=== PATIENT | male | born 1950 | race Caucasian/White ===

== ENCOUNTER 2020-08-07 10:42 | Outpatient (CLI) | payer MEDICARE, OTHER | END 2020-08-07 10:43 | disposition home or self-care (01) | LOC: COV 10:42 | PROVIDERS: ATTEND Family Medicine | DX: R05 Cough (principal); R06.02 Shortness of breath; R53.83 Other fatigue; R09.81 Nasal congestion; Z20.828 Contact with and (suspected) exposure to other viral communicable diseases ==

== ENCOUNTER 2022-02-12 14:08 | Outpatient (CLI) | payer MEDICARE, OTHER ==
[2022-02-12 14:37] LABS: CALCIUM 9.7 mg/dL (8.5-10.3); CREATININE 0.9 mg/dL (0.6-1.2)
== END 2022-02-12 14:09 | disposition home or self-care (01) ==
LOC: LAB 14:08
PROVIDERS: ATTEND Physician Assistant Surgical
DX: N20.2 Calculus of kidney with calculus of ureter (principal)
CPT/HCPCS: 36415; 80048

== ENCOUNTER 2022-04-11 15:21 | Outpatient (CLI) | payer MEDICARE, OTHER ==
--- NOTE | 2022-04-11 16:53 | Ultrasound Report ---
PROCEDURE: Retroperitoneal INDICATIONS: KIDNEY STONE TECHNIQUE: Real-time scanning was performed of the retroperitoneal organs, with image documentation. COMPARISON: None. FINDINGS: Kidneys: Kidneys are normal in size. Right kidney measures 12.1 cm long; left kidney measures 12.2 cm long. Right renal cortical thickness is 2. cm; left renal cortical thickness is 2.0 cm. No solid masses or hydronephrosis. There are bilateral echogenic foci on the left the largest measuring appro ximately 4 mm. Simple left renal cyst is present measuring 34 x 37 x 42 mm. Pancreas: Visualized por tions of the pancreas are sonographically normal. Bladder: Pre-void bladder volume is 957 mL. Post-void residual is 171 mL. Pre-void images demonstr ate no intraluminal masses or stones. On pre-void images, bilateral ureteral jets are noted with col or Doppler interrogation. (Of note, ureteral jets may not be detectable in up to 25% of cases due to insufficient differences in specific gravity between ureteral and bladder urine). Miscellaneous: No free abdominal fluid. IMPRESSION: Echogenic foci within the kidneys suggestive nonobstructing calculi. Reviewed by: Rola Carrillo MD on 04/11/2022 4:51 PM PDT Approved by: Rola Carrillo MD on 04/11/2022 4:51 PM PDT Station ID: [id number]
== END 2022-04-11 15:22 | disposition home or self-care (01) ==
LOC: DI 15:21
PROVIDERS: ATTEND Physician Assistant Surgical
DX: N20.0 Calculus of kidney (principal)

== ENCOUNTER 2022-04-11 16:30 | Outpatient (CLI) | payer MEDICARE, OTHER ==
--- NOTE | 2022-04-11 16:51 | Ultrasound Report ---
PROCEDURE: Head or Neck Soft Tissue INDICATIONS: LUMP RIGHT SIDE NECK TECHNIQUE: Real time scanning was performed of the neck region of interest, with image documentation . COMPARISON: None. FINDINGS: 3.3 x 1.8 x 3.9 cm isoechoic lesion in the lower lateral right neck soft tissues is noted. Doppler evaluation demonstrates no internal vascularity. No soft tissue edema associated with lesion. IMPRESSION: 2.3 x 1.8 x 2.9 cm isoechoic, nonvascular lesion corresponds to clinical palpable mass. Lesion may re present a lipoma. Recommend correlation with clinical findings. Decision to biopsy should be based on clinical assessment Reviewed by: Danelle Edwards MD, PhD on 04/11/2022 4:50 PM PDT Approved by: Danelle Edwards MD, PhD on 04/11/2022 4:50 PM PDT Station ID: [id number]
== END 2022-04-11 23:59 | disposition home or self-care (01) ==
LOC: DI 16:30
PROVIDERS: ATTEND Nurse Practitioner Family
DX: R22.1 Localized swelling, mass and lump, neck (principal); N20.0 Calculus of kidney

== ENCOUNTER 2023-10-26 15:01 | Emergency (ER) | payer MEDICARE, OTHER ==
[2023-10-26 16:03] LABS: GLUCOSE, URINE (UA) NEGATIVE (NEGATIVE); KETONES,URINE (UA) TRACE mg/dL (NEGATIVE); LEUKOCYTE ESTERASE, URINE NEGATIVE (NEGATIVE); NITRITE,URINE NEGATIVE (NEGATIVE); OCCULT BLOOD,URINE TRACE-INTA (NEGATIVE); PH,URINE 6.5 PH (5.0-7.5); PROTEIN,URINE TRACE mg/dL (NEGATIVE); UROBILINOGEN,URINE 0.2 (NORMAL) E.U./dL (NORMAL)
[2023-10-26 16:11] LABS: BILIRUBIN,URINE NEGATIVE (NEGATIVE); CLARITY,URINE CLEAR (CLEAR); ICTOTEST,URINE NEGATIVE
[2023-10-26 16:14] LABS: BASOPHILS % (AUTO) 0.4 %; EOSINOPHILS % (AUTO) 0.3 %; HCT - HEMATOCRIT 46.5 % (42.0-52.0); HGB - HEMOGLOBIN 15.4 g/dL (14.0-18.0); LYMPHOCYTES # (AUTO) 0.3 10^3/uL (1.5-3.5); LYMPHOCYTES % (AUTO) 3.9 %; MEAN CORPUSCULAR HEMOGLOBIN 33.2 pg (27.0-31.0); MEAN CORPUSCULAR HGB CONC 33.1 g/dL (32.0-36.0); MEAN CORPUSCULAR VOLUME 100.2 fL (80.0-94.0); MEAN PLATELET VOLUME 10.2 fL (7.4-11.4); MONOCYTES # (AUTO) 0.5 10^3/uL (0.0-1.0); MONOCYTES % (AUTO) 6.7 %; NEUTROPHILS # (AUTO) 6.1 10^3/uL (1.5-6.6); NEUTROPHILS % (AUTO) 88.4 %; PLT - PLATELET COUNT 234 10^3/uL (130-450); RED BLOOD COUNT 4.64 10^6/uL (4.70-6.10); RED CELL DISTRIBUTION WIDTH 12.8 % (12.0-15.0); WHITE BLOOD COUNT 6.9 x10^3/uL (4.8-10.8)
[2023-10-26 16:29] LABS: ALBUMIN 4.5 g/dL (3.2-5.5); BILIRUBIN,TOTAL 0.7 mg/dL (0.2-1.0); CALCIUM 9.3 mg/dL (8.5-10.3); CREATININE 0.9 mg/dL (0.6-1.3); POTASSIUM 4.4 mmol/L (3.5-4.5); TOTAL PROTEIN 6.7 g/dL (6.4-8.9)
--- NOTE | 2023-10-26 17:02 | ED Physician Documentation ---
PD HPI ABD PAIN - Stated complaint Stated Complaint: ABD PX,VOMITING/DIARRHEA - Chief complaint Chief Complaint: Abd Pain - History obtained from History obtained from: Patient - Additional information Additional information: 73-year-old gentleman with history of MGUS, hyperlipidemia, reflux, inguinal hernia repair remotely and history of kidney stones requiring lithotripsy was feeling it well yesterday. This morning around 4 AM he woke up and he had vomiting and diarrhea as well as severe right upper quadrant pain. He was severely ill for about 7 hours but states he is mostly better now. He still has mild abdominal pain and feeling uneasy but declines medications. He is mostly worried that he might have a blockage, or kidney stone, or stomach flu. PD PAST MEDICAL HISTORY - Past Medical History Past Medical History: Yes Cardiovascular: Other Respiratory: None Neuro: Peripheral neuropathy Endocrine/Autoimmune: None GI: GERD : Benign prostate hypertrophy, Kidney stones HEENT: None Psych: None Musculoskeletal: Osteoarthritis, Chronic back pain Derm: None - Past Surgical History Past Surgical History: Yes Ortho: Knee replacement - Present Medications Home Medications: Ambulatory Orders Medication Instructions Recorded Confirmed Pantoprazole Sodium 40 mg PO DAILY 10/26/23 10/26/23 Simvastatin [Zocor] 20 mg PO HS 10/26/23 10/26/23 Tadalafil [Cialis] 5 mg PO DAILY 10/26/23 10/26/23 Tamsulosin [Flomax] 0.4 mg ORAL DAILY 10/26/23 10/26/23 - Allergies Allergies/Adverse Reactions: Allergies Allergy/AdvReac Type Severity Reaction Status Date / Time No Known Drug Allergies Allergy Verified 10/26/23 15:37 - Social History Does the pt smoke?: No Smoking Status: Former smoker Does the pt drink ETOH?: Yes Does the pt have substance abuse?: No - Immunizations Immunizations are current?: Yes PD ED PE NORMAL - Vitals Vital signs reviewed: Yes - General General: Alert and oriented X 3, No acute distress - Cardiac Cardiac: RRR - Respiratory Respiratory: No respiratory distress, Clear bilaterally - Abdomen Abdomen: Normal bowel sounds, Soft, Non tender - Neuro Neuro: Alert and oriented X 3, Normal speech Results - Vitals Vitals: Vital Signs - 24 hr 10/26/23 10/26/23 15:39 18:01 Temperature 36.8 C Heart Rate 102 H 86 Respiratory 18 16 Rate Blood Pressure 105/71 138/78 H O2 Saturation 96 100 Oxygen O2 Source Room air - Labs Labs: Laboratory Tests 10/26/23 10/26/23 10/26/23 15:56 16:12 16:12 WBC 6.9 RBC 4.64 L Hgb 15.4 Hct 46.5 MCV 100.2 H MCH 33.2 H MCHC 33.1 RDW 12.8 Plt Count 234 MPV 10.2 Neut # (Auto) 6.1 Lymph # (Auto) 0.3 L Owen # (Auto) 0.5 Eos # (Auto) 0.0 Baso # (Auto) 0.0 Absolute Nucleated RBC 0.00 Nucleated RBC % 0.0 Sodium 139 Potassium 4.4 Chloride 106 Carbon Dioxide 27 Anion Gap 6.0 BUN 27 H Creatinine 0.9 Estimated GFR (MDRD) 82 L Glucose 116 H Calcium 9.3 Total Bilirubin 0.7 AST 16 ALT 14 Alkaline Phosphatase 63 Total Protein 6.7 Albumin 4.5 Globulin 2.2 Albumin/Globulin Ratio 2.0 Lipase 35 Urine Color YELLOW Urine Clarity CLEAR Urine pH 6.5 Ur Specific [place] 1.020 Urine Protein TRACE Urine Glucose (UA) NEGATIVE Urine Ketones TRACE Urine Occult Blood TRACE-INTA Urine Nitrite NEGATIVE Urine Bilirubin NEGATIVE Urine Urobilinogen 0.2 (NORMAL) Ur Leukocyte Esterase NEGATIVE Ur Microscopic Review NOT INDICATED Urine Culture Comments NOT INDICATED - Rads (name of study) CT a/p Relevant Findings:: Final report received, EMP independent interpretation of test PD Medical Decision Making - ED course ED course: 73-year-old gentleman presents with abdominal pain and vomiting which mostly resolved now. Could be a viral stomach illness. Benign exam. He has known liver cysts and on CT these are of a size which they may be intermittently symptomatic. We will treat with Zofran with close return precautions but given the size of the liver cyst hepatology consultation was recommended. Departure - Departure Disposition: 01 Home, Self Care Clinical Impression: Abdominal pain, Vomiting Condition: Good Record reviewed to determine appropriate education?: Yes Instructions: ED Nausea Vomiting Comments: You were seen tonight for vomiting. On work-up you had a normal CBC, CMP unremarkable except for BUN of 27 and glucose of 116, normal urinalysis. CT read of the abdomen pelvis with IV contrast was as follows: 1. No acute abnormality of the abdomen. 2. Multiple large hepatic cysts measuring up 10 cm, may be the etiology of pain. 3. Normal gallbladder. Given the size of your liver cysts, it might be reasonable to follow-up with a puttier. You can follow-up with [facility] where you get most of your care, or conversely with a puttier associate with the [facility], the phone number there is [phone]. Return for new or worsening symptoms. Forms: PCP List
[2023-10-26] MEDS ORDERED: iohexoL-300 100 ML VIAL IVP ONE (18:01)
[2023-10-26 18:03] VITALS: BP 138/78; O2SAT 100
--- NOTE | 2023-10-26 18:03 | CT Report ---
PROCEDURE: ABDOMEN/PELVIS W INDICATIONS: iv only, ruq ppain CONTRAST: 100mL Omni 300 TECHNIQUE: After the administration of contrast, 5 mm thick sections acquired from the diaphragms to the symphys is. 5 mm thick coronal and sagittal reformats were acquired. For radiation dose reduction, the foll owing was used: automated exposure control, adjustment of mA and/or kV according to patient size. COMPARISON: None FINDINGS: Image quality: Excellent. Lung bases and heart: Unremarkable. Liver: No solid mass. Multiple large simple cysts are seen, the largest in the right lobe measuring 9 cm in the largest in the left lobe measuring 10 cm. Gallbladder and biliary tree: The gallbladder is normal. No wall thickening or pericholecystic fluid. Spleen: No splenomegaly. Pancreas: No pancreatic ductal dilation. Adrenals: No adrenal nodule. Kidneys and ureters: No hydronephrosis. No renal cystic lesion which requires follow up. No solid mas s. Bowel and peritoneum: No bowel distension. No pathologic free fluid. Lymph nodes: No central or retroperitoneal adenopathy. Vessels: The aorta has atherosclerotic calcifications with a normal caliber. PELVIS Reproductive organs: Unremarkable. Bladder: No abnormal wall thickening, accounting for underdistension. Pelvic lymph nodes: No pelvic adenopathy by size criteria. Bones: Multilevel degenerative changes of the lumbar spine. Other: No significant ventral or inguinal hernia. IMPRESSION: 1. No acute abnormality of the abdomen. 2. Multiple large hepatic cysts measuring up 10 cm, may be the etiology of pain. 3. Normal gallbladder. Reviewed by: Geoff Osullivan on 10/26/2023 5:02 PM [facility] Approved by: Geoff Osullivan on 10/26/2023 5:02 PM [facility] Station ID: [id number]
[2023-10-26] MEDS ORDERED: ONDANSETRON ODT 4 MG Prepack 2 TL STA (18:14)
== END 2023-10-26 18:24 | disposition home or self-care (01) ==
LOC: ED 15:01
DX: R10.11 Right upper quadrant pain (principal); R11.10 Vomiting, unspecified; Z87.891 Personal history of nicotine dependence; K76.89 Other specified diseases of liver
CPT/HCPCS: 36415; 74177; 80053; 81003; 83690; 85025; 99283; 99284; Q9967; 81001; 87086